=== PATIENT | female | born 1990 | race Caucasian/White ===

== ENCOUNTER 2016-08-13 14:57 | Inpatient (IN) | payer OTHER ==
[2016-08-13] MEDS ORDERED: BUTORPHANOL TARTRATE 2 MG/ML VIAL IV PRN (15:04)
[2016-08-13] MEDS ORDERED: ONDANSETRON HCL/PF 2 MG/ML VIAL IV PRN ×2 (15:04→15:30)
[2016-08-13] MEDS ORDERED: OXYTOCIN/DEXTROSE 5%-WATER 30 UNITS/500 ML BAG IV ONE ×2 (15:04)
[2016-08-13] MEDS ORDERED: RINGERS SOLUTION,LACTATED 1,000 ML IV ONE (15:04)
[2016-08-13] MEDS ORDERED: LIDOCAINE HCL 50 ML VIAL PERI PRN (15:04)
[2016-08-13] MEDS ORDERED: DEXTROSE 5%-LACTATED RINGERS 1,000 ML IV PRN (15:04)
[2016-08-13] MEDS ORDERED: RINGERS SOLUTION,LACTATED 1,000 ML IV PRN (15:04)
[2016-08-13] MEDS ORDERED: fentaNYL CITRATE/PF 50 MCG/ML AMPUL IT ONE (15:30)
[2016-08-13] MEDS ORDERED: fentaNYL CITRATE/PF 50 MCG/ML AMPUL IT SCH (15:30)
[2016-08-13] MEDS ORDERED: NALOXONE HCL 1 MG/1 ML SYRG IV PRN (15:30)
[2016-08-13] MEDS ORDERED: BUPIVACAINE HCL/0.9 % NACL/PF 250 ML EP PRN (15:30)
--- NOTE | 2016-08-13 16:28 | OR ---
Anesthesia Procedure Note - Anesthesia Procedure Note Narrative: Vital Signs - Last Taken Temp 36.6 C 03/31/14 13:05 Pulse Resp BP 118/68 03/31/14 13:05 Pulse Ox 08/13/16 16:27 ANESTHESIA PROCEDURE NOTE Date of Procedure: 08/13/2016 Time of procedure: 1610. Performed by: Pola Guy CRNA [employer]: None. Preprocedure diagnosis: Active labor. Post procedure diagnosis: Same. Procedure: Insertion of labor epidural. Indications: The patient is a 25 -year-old multigravida female in active labor requesting labor epidural for pain management. Findings: See below. Details of the procedure: The patient was placed in a sitting position. Back was prepped with DuraPrep. Patient was then draped in a sterile fashion. Lidocaine 1% was infiltrated to the skin and subcutaneous tissues at the level of the L3 4 interspace. The epidural space was identified using a 18-gauge Tuohy needle with [id number] technique. 20 mcg fentanyl was given intrathecally using a 27 ga. spinal needle. Epidural catheter was inserted without difficulty. Negative test dose was elicited using 5 mL of 1.5% preservative-free lidocaine plus epinephrine 1 200,000. The epidural catheter was then taped and secured in place. EBL: Minimal. Fluids: N/A. Specimen: N/A. Post procedure condition: The patient tolerated the procedure well. No complications were noted. Thank you for this consultation. Velasquez CRNA
--- NOTE | 2016-08-13 16:48 | PN ---
Progess Note - Interim Narrative: 08/13/16 16:46 Subjective-comfortable after epidural Objective- SVE- /-3, amniotomy was performed with clear fluid FHTs- 135, moderate variability, positive accelerations, no decelerations [place]- every 2-5 minutes Assessment and plan- Labor-spontaneous GBS status- neg Continue current plan of care.
[2016-08-14] MEDS ORDERED: SENNOSIDES 8.6 MG TABLET PO PRN (00:26)
[2016-08-14] MEDS ORDERED: HYDROCORTISONE 30 APPL TUBE TP PRN (00:26)
[2016-08-14] MEDS ORDERED: BISACODYL 10 MG SUPP.RECT RC PRN (00:26)
[2016-08-14] MEDS ORDERED: OXYTOCIN/DEXTROSE 5%-WATER 30 UNITS/500 ML BAG IV ONE (00:26)
[2016-08-14] MEDS ORDERED: GLYCERIN/WITCH HAZEL LEAF 40 APPL BOX TP PRN (00:26)
[2016-08-14] MEDS ORDERED: BENZOCAINE/MENTHOL 81 SPRAY CAN TP PRN (00:26)
[2016-08-14] MEDS ORDERED: oxyCODONE HCL/ACETAMINOPHEN 1 TAB TABLET PO PRN ×2 (00:26)
[2016-08-14] MEDS ORDERED: CALCIUM CARBONATE 500 MG TAB.CHEW PO PRN (00:27)
--- NOTE | 2016-08-14 00:30 | OR ---
Operative Report - Dictated Report Narrative: Spontaneous Vaginal Delivery Viable male with APGARS of 7 at 1 minute and 9 at 5 minutes. He delivered at 0007. Presentation was CHI. A tight nuchal cord was reduced after delivery of the head. The right anterior shoulder delivered with gentle downward traction followed by the posterior shoulder and the remainder of the baby. The patient was placed on the maternal abdomen and dried and stimulated. After approximately 60 seconds the cord was clamped and cut. Weight: 7 pounds 14.1 ounces or 3575 g Placenta was delivered spontaneously and intact. No lacerations were noted. Estimated blood loss: 200 ml Mother and baby tolerated delivery well. History for Definition: * The number of deliveries resulting in a live the patient experienced prior to current hospitalization * The previous delivery of live twins or any live multiple gestation is considered one live event. *If primagravida or nulliparous is documented select zero for the number of previous live births. Live Events: 2
[2016-08-14] MEDS: IBUPROFEN 800 MG TABLET PO PRN ×2 (07:14→17:12)
[2016-08-14] MEDS: DOCUSATE SODIUM 100 MG CAPSULE PO SCH ×2 (09:25→20:07)
[2016-08-14] MEDS: PRENATAL VIT#96/FERROUS FUM/FA 1 TAB TABLET PO SCH (09:25)
--- NOTE | 2016-08-14 11:04 | PN ---
Progess Note - Interim Narrative: 08/14/16 11:03 progress note Subjective: The patient is doing well. She is ambulating, voiding, tolerating by mouth. She has minimal pain and moderate lochia. Objective: General: No acute distress Abdomen: Soft, nontender, fundus is firm just below the umbilicus Extremities: minimal edema, nontender to palpation Assessment and plan: day 0 Feeding: Pumping and bottle feeding Pain: Controlled with by mouth medication Routine care.
[2016-08-15] MEDS: IBUPROFEN 800 MG TABLET PO PRN (07:41)
[2016-08-15 07:44] VITALS: BP 127/58
--- NOTE | 2016-08-15 09:01 | PN ---
Progess Note - Interim Narrative: 08/15/16 08:58 progress note Subjective: The patient is doing well. She is ambulating, voiding, tolerating by mouth. She has minimal pain and moderate lochia. Objective: General: No acute distress Abdomen: Soft, nontender, fundus is firm just below the umbilicus Extremities: minimal edema, nontender to palpation Assessment and plan: day 1 Feeding: Pumping and bottle Pain: Controlled with by mouth medication control: Progesterone only mini pill until her gets a vasectomy Routine care.
[2016-08-15] MEDS: PRENATAL VIT#96/FERROUS FUM/FA 1 TAB TABLET PO SCH (09:24)
[2016-08-15] MEDS: DOCUSATE SODIUM 100 MG CAPSULE PO SCH (09:24)
== END 2016-08-15 11:06 | disposition home or self-care (01) | DRG 775 ==
LOC: OB 14:57 → MS 08-15 10:24
PROVIDERS: ADMIT Obstetrics & Gynecology Gynecologic Oncology; ATTEND Obstetrics & Gynecology Gynecologic Oncology
PROC: 10E0XZZ Delivery of Products of Conception, External Approach (ICD-10-PCS; principal; 2016-08-14)
PROC: 10907ZC Drainage of Amniotic Fluid, Therapeutic from Products of Conception, Via Natural or Artificial Opening (ICD-10-PCS; 2016-08-14)
PROC: 4A1HXCZ Monitoring of Products of Conception, Cardiac Rate, External Approach (ICD-10-PCS; 2016-08-14)
PROC: 3E0S3CZ (ICD-10-PCS; 2016-08-14)
DX: O69.1XX0 Labor and delivery complicated by cord around neck, with compression, not applicable or unspecified (principal); Z3A.38 38 weeks gestation of pregnancy; Z37.0 Single live birth